=== PATIENT | male | born 1950 | race Caucasian/White ===

== ENCOUNTER → 2018-01-14 | Outpatient (CLI) | payer MEDICARE ==
[~2018-01-14] MED LIST: IOPAMIDOL 370 MG/ML 200 ML INFUS..BTL INJ ONE; SODIUM CHLORIDE 0.9% 50ML 50 ML ONE
[2018-01-14 12:13] LABS: BLOOD UREA NITROGEN 12 mg/dL (7-26); BUN/CREATININE RATIO 17 (6-25); CREATININE, SERUM 0.71 mg/dL (0.72-1.25); EST GLOMERULAR FILTRATION RATE > 60 ML/MIN (60-)
--- NOTE | 2018-01-14 13:02 | Diagnostic Imaging Report ---
PROCEDURE: CT scan of the chest WITH intravenous contrast, using standard protocol. TECHNIQUE: The chest was scanned utilizing a multidetector helical scanner from the lung apex through the level of the adrenal glands after the IV administration of 100 cc of Isovue 370. Coronal and sagittal multiplanar reformations were obtained. COMPARISON: None. INDICATIONS: ABNORMAL CHEST XRAY, short of breath FINDINGS: Lines/tubes: None. Lungs and Airways: The lungs and airways are normal with no focal abnormality demonstrated. Pleura: The pleural spaces are clear. Heart and mediastinum: The thyroid gland is normal. No significant mediastinal, hilar or axillary lymphadenopathy is seen. The heart and pericardium are within normal limits. Severe tri vessel coronary artery calcifications. Soft tissues: Normal. Abdomen: Limited contrast-enhanced views of the upper abdomen show no abnormality within the visualized liver, spleen, pancreas, or kidneys. The adrenal glands are normal. A 1.4 cm cyst in segment 4A of the liver. Bones: The visualized bony thorax is within normal limits. IMPRESSION: 1. Unremarkable chest CT. 2. After discussing with the ordering provider, there was widening of the upper mediastinum and prominence of the right hilar region on chest xray. This corresponds to fatty proliferation in the mediastinum and normal hilar vasculature. Dictated by: Favian Escamilla M.D. on 01/14/2018 at 13:02 Electronically approved by: Favian Escamilla M.D. on 01/14/2018 at 13:02
== END ==
LOC: CT 11:31
PROVIDERS: ATTEND Family Medicine
DX: R93.8 Abnormal findings on diagnostic imaging of other specified body structures (principal)
CPT/HCPCS: 36415; 71260; 82565; 84520; Q9967

== ENCOUNTER → 2019-04-11 | Outpatient (CLI) | payer MEDICARE ==
--- NOTE | 2019-04-11 16:40 | Diagnostic Imaging Report ---
ADDENDUM #[address] Nguyen's report with minor changes in the degenerative section:. 1. The discs are degenerated and partially fused from C2 to C5, moderately degenerated from C5 -T1. Superimposed confluent anterior osteophytes from C2 to C5 are consistent with DISH 2. Moderate to severe degenerative spinal canal stenosis from C2 to C4, and from C5 to C7 is due to disc osteophyte complexes and calcifications of the PLL. 3. Superimposed degenerative foraminal stenosis is mild left at C3-4, mild bilaterally at C5-6, moderate right, severe left at C6-7 due to facet and uncoarthrosis. Final report provided by Dr. Mena on 04/11/2019 at 1917 hours Signed by: Dr. Jm Mena M.D. on 04/11/2019 7:18 PM ORIGINAL REPORT Exam: Noncontrast C-spine CT History: Cervical spine ankylosis Comparison studies: None Technique: Axial images were obtained through the cervical region. Coronal and sagittal images reconstructed from the axial data. Dose modulation, iterative reconstruction, and/or weight based adjustment of the mA/kV was utilized to reduce the radiation dose to as low as reasonably achievable. Intravenous contrast: None Findings: Airway: Patent. Atlantoaxial articulation: Intact Alignment: Normal lordosis No scoliosis. Cervicomedullary junction: No abnormalities. Patent foramen magnum. Soft tissues: No gross abnormalities. Vertebrae: No fractures, neoplasm or infection. Degenerative changes: Large flowing anterior osteophytes ankylosis vertebral bodies C2-C5 with smaller anterior osteophyte osteophytes bridging C5-6 and C6-7. The posterior longitudinal ligament is ossified from C2-3 through C6 with resultant mild narrowing of the central canal. Overall this results in ankylosis from C2-3 through C6-7 with severe degenerative disc disease at C7-T1 with endplate sclerosis and moderate bilateral facet arthrosis. Mild mild bilateral foraminal stenosis at C6-7. IMPRESSION: 1. 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 No evidence of fracture. 2. 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 Preliminary report was provided by the neuroradiology fellow. Final read to follow. Signed by: Josse Nguyen MD on 04/11/2019 4:36 PM
== END ==
LOC: CT 13:43
PROVIDERS: ATTEND Family Medicine
DX: M43.22 Fusion of spine, cervical region (principal)
CPT/HCPCS: 72125